=== PATIENT | female | born 1995 | race Caucasian/White ===

== ENCOUNTER 2016-12-03 19:03 | Emergency (ER) | payer BC ==
--- NOTE | 2016-12-03 19:36 | EDPHY ---
H & P Time Seen by Provider: 12/03/16 19:07 HPI/ROS: CHIEF COMPLAINT: mouth sores HISTORY OF PRESENT ILLNESS: 20-year-old female presents emergency department complaining of sores in her x2 weeks that are painful and not improving. Patient reports she has a history of getting cold sores and says she gets canker sores as well. She denies fevers or chills, no blurred vision, eye pain or itchiness. Patient reports every time she tox or smiles her teeth rubbed against a sores causing pain. She denies other complaints. No sore throat. Smoking Status: Never smoked Physical Exam: GEN: Awake, alert, oriented, no acute distress RESP: nl resp effort, inside lower lip with two small ulcers 3-4 mm posterior pharynx with no lesions, uvula midline normal tonsils, no exudate MSK: Normal appearing SKIN: No rash Constitutional: Initial Vital Signs Temperature (C) 36.8 C 12/03/16 19:04 Heart Rate 53 L 12/03/16 19:04 Respiratory Rate 18 12/03/16 19:04 Blood Pressure 113/75 12/03/16 19:04 O2 Sat (%) 98 12/03/16 19:04 O2 Delivery Mode Room Air Allergies/Adverse Reactions: lactose Allergy (Unverified 12/03/16 19:32) Home Medications: Medication Instructions Recorded Triamcinolone 0.1% [Orabase (*)] 1 bebo TP TID 7 Days 12/03/16 MDM/Departure - Depart Disposition: Home, Routine, Self-Care Clinical Impression: Aphthous ulcer Condition: Good Instructions: Canker Sores (ED) Additional Instructions: Apply the steroid paste to your ulcers 2-3 times per day after meals. Follow up with primary care doctor for symptoms that are not improving in the next 10- 14 days. Return to the emergency department for any new symptoms, worsening symptoms or concerns. Prescriptions: Triamcinolone 0.1% [Orabase (*)] 1 bebo TP TID 7 Days Referrals: Ivory Gonsalez MD [Medical Doctor] - As per Instructions (Primary care doctor visual education director)
[2016-12-03 19:49] VITALS: BP 114/55; PULSE 62; RESP 15; TEMP 97.3; O2SAT 99
== END 2016-12-03 19:49 | disposition home or self-care (01) ==
DX: K12.0 Recurrent oral aphthae (principal)